=== PATIENT | male | born 1965 | race Caucasian/White ===

== ENCOUNTER 2017-11-25 11:27 | Emergency (ER) | payer OTHER ==
[~2017-11-25] VITALS: Ht 165.1 cm; Wt 68.1 kg
[~2017-11-25 11:27] MED LIST: ALLEGRA60 MG PO; AMLODIPINE BESYL5 MG PO; AZITHROMYCIN250 MG PO; CALTRATE 600 +1 EAC1 PO; CENTRUM SILVER1 EAC3 PO; COLACE100 MG PO; FLEXERIL5 MG PO; FLOMAX0.4 MG PO; FLONASE16 G1 BOTH NARES; LISINOPRIL10 MG PO; LO-DOSE ASPIRIN81 M1 PO; MAGNESIUM400 M1 PO; MOBIC15 MG PO; NAPROSYN500 MG PO; NORCO 7.5/321 TABLET PO; PERCOCET 5/31 TABLET PO; PERCOCET 7.51 TABLET PO; POTASSIUM-9999 MG PO; PREDNISONE10 MG PO; ROPINIROLE HCL1 MG PO; SLO-NIACIN500 MG PO; TRAMADOL HCL50 MG PO; VALIUM5 MG PO; VENTOLIN HFA18 GM IH; VITAMIN E400 UNIT PO
[2017-11-25 11:50] LABS: HEMATOCRIT 38.1 % (38.0-50.0); HEMOGLOBIN 12.9 G/DL (12.5-16.6); MCH 33.2 PG (29.0-34.0); MCHC 33.9 G/DL (30.0-36.0); MCV 97.9 FL (86-99); PLATELET COUNT 258 K/uL (156-360); RBC DIS.WIDTH-CV 13.4 % (11.8-14.6); RBC DIS.WIDTH-SD 48.5 % (39-53); RED BLOOD COUNT 3.89 M/uL (4.00-5.50); WHITE BLOOD COUNT 8.7 K/uL (4.1-10.2)
[2017-11-25 12:06] LABS: CHLORIDE 112 mEq/L (99-109); POTASSIUM 4.5 mEq/L (3.7-5.4); SODIUM 143 mEq/L (136-147)
[2017-11-25 12:08] LABS: GLUCOSE 89 mg/dL (70-99)
[2017-11-25 12:11] LABS: CREATININE 1.7 mg/dL (0.6-1.3); GFR ESTIMATE (CALCULATED) 45 mL/min/ (58.99-99999)
[2017-11-25 12:12] LABS: UREA NITROGEN (BUN) 24 mg/dL (9-23)
[2017-11-25 12:16] LABS: APPEARANCE CLOUDY ((CLEAR)); BILIRUBIN NEGATIVE; BLOOD NEGATIVE; COLOR YELLOW ((YELLOW)); GLUCOSE (STRIP) NEGATIVE; KETONES NEGATIVE; LEUKOCYTES NEGATIVE; NITRITE NEGATIVE; PROTEIN (STRIP) NEGATIVE; SPECIFIC GRAVITY 1.018 (1.000-1.030); UROBILINOGEN 0.2 MG/DL (0.2-1.0)
[2017-11-25 12:24] LABS: BACTERIA NONE SEEN /HPF; EPITHELIAL CELLS NONE SEEN /HPF; MUCUS TRACE /LPF; UCUL ADDED? NO; WHITE BLOOD CELLS 0-5 /HPF (0-5)
[2017-11-25 13:38] LABS: ALBUMIN 4.4 g/dL (3.2-4.8)
[2017-11-25 13:41] LABS: TOTAL PROTEIN 6.8 g/dL (6.4-8.3)
[2017-11-25 13:43] LABS: TOTAL BILIRUBIN 0.3 mg/dL (0.0-1.0)
[2017-11-25 13:44] LABS: ALKALINE PHOSPHATASE 89 IU/L (3-129)
[2017-11-25 13:46] LABS: AST (GOT) 17 IU/L (2-34)
[2017-11-25 13:47] LABS: ALT (GPT) 16 IU/L (3-49); DIRECT BILIRUBIN 0.1 mg/dL (0.0-0.3)
[2017-11-25 13:48] LABS: LIPASE 50 U/L (1.0-51.0)
[2017-11-25] MEDS ORDERED: MOTRIN600 MG PO (15:09)
[2017-11-25] MEDS ORDERED: ZOFRAN ODT4 MG PO (15:09)
[2017-11-25] MEDS ORDERED: PERCOCET 5/31 TABLET PO (15:09)
[2017-11-25 15:15] VITALS: BP 122/76
== END 2017-11-25 15:35 | disposition home or self-care (01) ==
LOC: EME 11:27
DX: N13.2 Hydronephrosis with renal and ureteral calculous obstruction (principal); Z87.442 Personal history of urinary calculi; E78.5 Hyperlipidemia, unspecified; F17.200 Nicotine dependence, unspecified, uncomplicated; Z79.82 Long term (current) use of aspirin
CPT/HCPCS: 74176; 80048; 80076; 81003; 83690; 85027; 99281; 99285; J1885; J2405; J7030